=== PATIENT | male | born 1975 | race Caucasian/White ===

== ENCOUNTER → 2017-08-16 | Outpatient (CLI) | payer OTHER | LOC: COL.RAD 07:55 | DX: M47.816 Spondylosis without myelopathy or radiculopathy, lumbar region (principal) ==

== ENCOUNTER → 2020-02-16 | Outpatient (CLI) | payer OTHER | LOC: COL.RAD 07:43 | DX: K76.0 Fatty (change of) liver, not elsewhere classified (principal) ==

== ENCOUNTER → 2020-04-04 | Outpatient (CLI) | payer OTHER ==
[2020-04-04] VITALS (11 sets, daily range): BP systolic 118–147; BP diastolic 83–93; PULSE 61–88
[~2020-04-04] VITALS: Ht 175.3 cm; Wt 97.9 kg
[~2020-04-04] MED LIST: CLARITIN 1010 MG/TAB PO; PRIL40 PO; PULMICORT180 MCG/Ac IH; SINGULAIR 110 MG/TAB PO; ZYLOPRIM 300MG300 MG PO
[2020-04-04 09:28] LABS: INR 1.1 (0.8-3.0); PROTHROMBIN TIME 12.3 SECONDS (9.7-12.8)
--- NOTE | 2020-04-04 09:40 | NUR ---
pt to ct per ambulation. Pt positioned on ct table in supine position. Monitors applied to pt.
--- NOTE | 2020-04-04 09:50 | NUR ---
Dr Dietrich in and talks with pt regarding the procedure.
--- NOTE | 2020-04-04 10:00 | NUR ---
Specimens obtained by Dr Dietrich and placed in formalin. specimen labeled.
--- NOTE | 2020-04-04 11:18 | NUR ---
Pt up to bathroom. No change in pressure. Pt reports his ride will be here around 1130.
--- NOTE | 2020-04-04 11:30 | NUR ---
Continue to await pts ride home. Denies complaints at this time.
--- NOTE | 2020-04-04 11:40 | NUR ---
Pts ride here pt out to car per wheelchair. Reports minimal pressure to site. Pt up and into car without difficulty.
== END ==
LOC: COL.RAD 08:57
PROVIDERS: Internal Medicine Gastroenterology
DX: R74.8 Abnormal levels of other serum enzymes (principal)

== ENCOUNTER → 2020-10-25 | Outpatient (CLI) | payer OTHER | LOC: COL.RAD 09:09 | DX: K75.81 Nonalcoholic steatohepatitis (NASH) (principal) ==